=== PATIENT | female | born 1975 | race Caucasian/White ===

== ENCOUNTER → 2016-06-15 | Outpatient (CLI) | payer OTHER ==
[~2016-06-15] MED LIST: IBUP-1050 PO; MELA1TAB5 PO; PEDI-19 PO; PRENTAB26 PO
== END | disposition home or self-care (01) ==
LOC: C.PAPS 14:17
PROVIDERS: ATTEND Obstetrics & Gynecology
DX: Z01.419 Encounter for gynecological examination (general) (routine) without abnormal findings (principal); Z30.9 Encounter for contraceptive management, unspecified

== ENCOUNTER → 2016-08-03 | Day surgery (SDC) | payer OTHER ==
[2016-07-07 11:03] VITALS: Ht 167.6 cm; Wt 90.9 kg
[2016-07-23 13:48] LABS: BASO % 0.2 %; BASO ABS # 0.01 K/uL (0-0.2); COMPLETE YES; EOS % 0.9 %; IG% 0.2 %; LYMPH % 30.8 %; LYMPH ABS # 1.78 K/uL (1.2-3.4); MEAN CELL VOLUME 88.8 fL (80-100); MEAN CORPUSCULAR HEMOGLOBIN 29.2 pg (25-34); MEAN CORPUSCULAR HGB CONC 32.8 g/dl (32-36); MEAN PLATELET VOLUME 11.6 fL (7.4-10.4); MONO % 4.8 %; NEUT % 63.1 %; PLATELET COUNT 158 K/uL (130-400); RED BLOOD COUNT 4.39 M/uL (4.2-5.4); WHITE BLOOD COUNT 5.78 K/uL (4.8-10.8)
[~2016-08-03] VITALS: Ht 167.6 cm; Wt 90.9 kg
[~2016-08-03] MED LIST changes: +ATROPINE SULFATE 0.1 MG/ML 5ML SYR IV PRN; +DEXAMETHASONE SOD INJ 4 MG/ML VIAL ONE; +EpHEDrine SULFATE INJ 50 MG/ML AMP IV PRN; +FENTANYL CITRATE INJ 50 MCG/1 ML 2 ML VIAL IV PRN; +FENTANYL CITRATE INJ 50 MCG/1 ML 2 ML VIAL ONE; +GENERAL ORDER PROBLEM SCH; +GLYCOPYRROLATE INJ 0.2 MG/ML VIAL ONE; +HYDROmorphone INJ 1 MG/ML SYR IV PRN; +IBUPROFEN 600 MG TAB PO PRN; +KETOROLAC TROMETHAMINE 30 MG/ML VIAL IV. PRN; +KETOROLAC TROMETHAMINE 30 MG/ML VIAL IV. SCH; +KETOROLAC TROMETHAMINE 30 MG/ML VIAL ONE; +LACTATED RINGER'S 1000ML 1,000 ML IV SCH; +LIDOCAINE HCL 2% 2 ML VIAL (20MG/ML) ONE; +MIDAZOLAM HCL 1 MG/ML 2ML VIAL ONE; +MoRPHine SULFATE 2 MG/ML CARP IV PRN; +MoRPHine SULFATE 4 MG/ML 1 ML CARP\\VIAL IV PRN; +NEOSTIGMINE METHYLSULFATE 5 MG/5 ML SYR ONE; +ONDANSETRON INJ 2 MG/ML 2 ML VIAL IV PRN; +ONDANSETRON INJ 2 MG/ML 2 ML VIAL ONE; +OXYCODONE/ACETAMINOPHEN 5-325 TAB ONE; +OXYCODONE/ACETAMINOPHEN 5-325 TAB PO PRN; -PRENTAB26 PO; +PROPOFOL IV EMULSION 10 MG/ML 20 ML VIAL IV ONE; +SODIUM CHLORIDE 0.9% 1000ML 1,000 ML IV SCH
--- NOTE | 2016-08-03 08:11 | History & Physical Bridge - [place] ---
H&P Re-Evaluation Bridge Note: I have examined the patient, reviewed the History & Physical and in the interval since the performance of the History & Physical I have noted the following changes of clinical significance: No changes noted
--- NOTE | 2016-08-03 08:55 | [facility] Post Operative Brief Note ---
Immediate Operative Summary Operative Date Aug 03, 2016. Pre-Operative Diagnosis Desires Permanent Sterilization Post-Operative Diagnosis same Procedure(s) Performed Hysteroscopic Guided Tubal Sterilization With Bilateral Essure, Removal Intra Uterine Device Surgeon Dr. Sreedhar Sunshine Skein Washer Surgeon(s) 0 Estimated Blood Loss 0 Findings uterus sounded to 8cm, both tubal ostia visualized, no masses or lesions in the uterus. right coil placed first with 3 trailing coils, left with 5 trailing coils Fluids (cc crystalloids) 900cc ivf, 365 cc deficit. Specimens The removed IUD was inspected by Dr. Sunshine and found to be intact. It was not sent to Pathology Drains none Anesthesia gett Complication(s) None Disposition Recovery Room / PACU
--- NOTE | 2016-08-03 08:56 | Discharge Instructions ---
Discharge Instructions Date of Service Aug 03, 2016. Visit Reason for Visit: Contraceptive Management Discharge Discharge Diagnosis / Problem: s/p Mirena IUD removal, insertion of Essure coils bilaterally Discharge Goals Goal(s): Specific goals Activity Recommendations Activity Limitations: per Instructions/Follow-up section Anesthesia . Post Anesthesia Instructions: If you have had General Anesthesia or IV Sedation: * Do not drive today. * Resume driving when surgeon permits. * Do not make important decisions or sign legal documents today. * Call surgeon for: 1. Temperature elevations greater than 101 degrees F. 2. Uncontrollable pain. 3. Excessive bleeding. 4. Persistent nausea and vomiting. 5. Medication intolerance (nausea, vomiting or rash). * For nausea and vomiting use only clear liquids such as: tea, soda, bouillon until nausea subsides, then gradually increase diet as tolerated. * If you have any concerns or questions, call your surgeon's office. If physician is unavailable and it is an emergency, call 911 or go to the nearest emergency room. . Instructions / Follow-Up Instructions / Follow-Up ACTIVITY RECOMMENDATIONS: * Avoid tampons, douching, hot tubs, pools, and intercourse until bleeding has stopped. * May shower as usual. * No strenuous activity for 24-48 hours. After 24-48 hours, you may do anything you feel like doing (driving and sports are okay). SPECIAL CARE INSTRUCTIONS: Special Diet: * Mild nausea may occur in the immediate post-operative period. * Take clear liquids such as tea, cola or bouillon until all nausea has subsided; you may then resume your normal diet. Special Care: * Light bleeding and vaginal spotting can last from a few days to 3-4 weeks. Call your doctor if bleeding becomes heavier than the heaviest part of your period. * Check your temperature twice a day for one week. If it goes above 100.4 degrees Fahrenheit (38.0 Celsius), notify your doctor. * Call your doctor's office for an appointment for 6 weeks after your surgery. FOLLOW-UP VISIT: Call your doctor's office for an appointment for 6 weeks after your surgery. YOU MUST HAVE PROTECTED INTERCOURSE FOR 3 MONTHS UNTIL ESSURE PLACEMENT CONFIRMED. Diet Recommendations Recommended Home Diet: no limitations, resume previous diet Procedures Procedures Performed: Hysteroscopic Guided Tubal Sterilization With Bilateral Essure, Removal Intra Uterine Device Pending Studies Studies pending at discharge: no Medical Emergencies . Who to Call and When: Medical Emergencies: If at any time you feel your situation is an emergency, please call 911 immediately. . Non-Emergent Contact Non-Emergency issues call your: Bilingual Kindergarten Teacher . . "Provider Documentation" section prepared by Lyly Sunshine. .
[2016-08-03 09:27] VITALS: TEMP 36.4
--- NOTE | 2016-08-03 09:47 | OPERATIVE REPORT ---
DATE OF OPERATION: 08/03/2016 PREOPERATIVE DIAGNOSES: 1. Mirena intrauterine device in situ. 2. Desires permanent surgical sterilization. POSTOPERATIVE DIAGNOSES: Same. PROCEDURES: 1. Removal of Mirena intrauterine device, intact. 2. Bilateral Essure coil device placement. ANESTHESIA: General per endotracheal tube. ESTIMATED BLOOD LOSS: None. FLUIDS: 900 mL of IV fluids and 365 mL hysteroscopic deficit. INDICATIONS: Courtney is a 41-year-old, 3, para 3 with a Mirena IUD in situ who desires permanent surgical sterilization. FINDINGS: Uterus sounded to 8 cm. Both tubal ostia were visualized, coils were placed easily; the first on the right with 3 trailing coils and then on the left with 5 trailing coils. The uterus contained no masses or abnormalities. COMPLICATIONS: None. DRAINS: None. DISPOSITION: To recovery room in stable condition. DETAILS OF THE PROCEDURE: The patient was taken to the operating room where she was identified verbally and by bracelet. She was placed in dorsal supine position where general anesthesia was induced without difficulty. She was then placed in dorsal lithotomy position in [facility] stirrups and prepped and draped in normal sterile fashion. Timeout was held identifying correct patient, procedure and positioning. An exam under anesthesia was performed with a slightly anteverted mobile, nontender, normal sized uterus, no appreciable adnexal masses. The bladder was drained of urine. A weighted speculum was placed in the posterior vagina. The anterior lip of the cervix was grasped with a single tooth tenaculum. The IUD strings were visualized. They were grasped with an Allis clamp and the Mirena IUD was removed intact. The uterus was then sounded to 8 cm, dilated to #23 Hegar dilator. The hysteroscope was introduced, both tubal ostia were noted and was felt to be able to place the Essure coils easily. The Essure coils were placed first on the right; the Essure device threaded easily into the tubal ostia and was deployed with 3 trailing coils. Then, on the left, the Essure device was placed into the tubal ostia with ease and it was deployed with 5 trailing coils. The procedure was thus terminated. All instruments were removed from the vagina and hemostasis was noted to be excellent. All sponge, lap and needle counts were correct x2. The patient tolerated the procedure well and was taken to the recovery room in stable condition. I attest to the content of the Intraoperative Record and any orders documented therein. Any exceptio ns are noted below.
--- NOTE | 2016-08-03 09:51 | Anesthesia Progress Nt - [facility] ---
Anesthesia Post Op Note Date & Time Aug 03, 2016 at 09:51 Vital Signs Pain Intensity: 3.0 Vital Signs Past 12 Hours Date Time Temp Pulse Resp B/P Pulse Ox O2 Delivery O2 Flow Rate FiO2 08/03/16 09:23 59 12 100 08/03/16 09:23 59 12 08/03/16 09:20 116/78 08/03/16 09:19 36.7 99 Room Air 08/03/16 09:18 63 15 99 08/03/16 09:18 63 15 08/03/16 09:17 64 15 100 08/03/16 09:17 65 15 08/03/16 09:15 106/68 08/03/16 09:12 68 12 08/03/16 09:12 69 12 100 08/03/16 09:11 71 14 08/03/16 09:11 69 14 100 08/03/16 09:10 110/76 08/03/16 09:06 64 13 100 08/03/16 09:06 63 13 08/03/16 09:05 70 13 08/03/16 09:05 70 13 110/78 100 08/03/16 09:02 113/84 08/03/16 09:00 79 13 100 08/03/16 09:00 77 13 08/03/16 08:59 79 17 08/03/16 08:59 80 17 100 08/03/16 08:56 119/85 08/03/16 08:54 36.7 86 14 121/79 100 Mask 8 08/03/16 08:54 88 11 121/79 100 08/03/16 08:54 88 11 08/03/16 06:53 36.6 78 16 108/76 100 Room Air Notes Mental Status: alert / awake / arousable, participated in evaluation Pt Amnestic to Procedure: Yes Nausea / Vomiting: adequately controlled Pain: adequately controlled Airway Patency, RR, SpO2: stable & adequate BP & HR: stable & adequate Hydration State: stable & adequate Anesthetic Complications: no major complications apparent
[2016-08-03 10:19] VITALS: BP 112/76; PULSE 72; O2SAT 100
== END | disposition home or self-care (01) ==
LOC: X.SURG 06:45
PROVIDERS: ATTEND Obstetrics & Gynecology
DX: Z30.2 Encounter for sterilization (principal); Z30.432 Encounter for removal of intrauterine contraceptive device

== ENCOUNTER → 2016-10-29 | Outpatient (CLI) | payer OTHER ==
[~2016-10-29] MED LIST changes: -ATROPINE SULFATE 0.1 MG/ML 5ML SYR IV PRN; -DEXAMETHASONE SOD INJ 4 MG/ML VIAL ONE; -EpHEDrine SULFATE INJ 50 MG/ML AMP IV PRN; -FENTANYL CITRATE INJ 50 MCG/1 ML 2 ML VIAL IV PRN; -FENTANYL CITRATE INJ 50 MCG/1 ML 2 ML VIAL ONE; -GENERAL ORDER PROBLEM SCH; -GLYCOPYRROLATE INJ 0.2 MG/ML VIAL ONE; -HYDROmorphone INJ 1 MG/ML SYR IV PRN; -IBUPROFEN 600 MG TAB PO PRN; -KETOROLAC TROMETHAMINE 30 MG/ML VIAL IV. PRN; -KETOROLAC TROMETHAMINE 30 MG/ML VIAL IV. SCH; -KETOROLAC TROMETHAMINE 30 MG/ML VIAL ONE; -LACTATED RINGER'S 1000ML 1,000 ML IV SCH; -LIDOCAINE HCL 2% 2 ML VIAL (20MG/ML) ONE; -MIDAZOLAM HCL 1 MG/ML 2ML VIAL ONE; -MoRPHine SULFATE 2 MG/ML CARP IV PRN; -MoRPHine SULFATE 4 MG/ML 1 ML CARP\\VIAL IV PRN; -NEOSTIGMINE METHYLSULFATE 5 MG/5 ML SYR ONE; -ONDANSETRON INJ 2 MG/ML 2 ML VIAL IV PRN; -ONDANSETRON INJ 2 MG/ML 2 ML VIAL ONE; -OXYCODONE/ACETAMINOPHEN 5-325 TAB ONE; -OXYCODONE/ACETAMINOPHEN 5-325 TAB PO PRN; -PROPOFOL IV EMULSION 10 MG/ML 20 ML VIAL IV ONE; -SODIUM CHLORIDE 0.9% 1000ML 1,000 ML IV SCH
--- NOTE | 2016-10-29 10:40 | [facility] Operative Report ---
Operative Report Operative Date Oct 29, 2016. Pre-Operative Diagnosis S/P PLACEMENT OF ESSURE DEVICES Post-Operative Diagnosis SAME Procedure(s) Performed [facility] Surgeon NAKUL Plug Stitcher Surgeon(s) NONE Estimated Blood Loss NONE Findings NL FILLING UTERINE CAVITY. BOTH ESSURE DEVICES VISUALIZED IN CORRECT POSITIONS. NO FILLING OF THE TUBES. Fluids N/A Specimens NONE Drains NONE Anesthesia NONE Complication(s) None Disposition HOME Description of Procedure TIME OUT WAS HELD IDENTIFYING CORRECT PATIENT AND PROCEDURE. PATIENT WAS LAID SUPINE AND FROG-LEGGED. SPECULUM PLACED. CX CLEANED WITH IODINE AND GRASPED WITH ALLIS. RADIOLOGIST CALLED AND DYE WAS INTRODUCED INTO THE UTERINE CAVITY. THE FINDINGS ARE NOTED ABOVE. WHEN THE PROCEDURE WAS COMPLETED, THE INSTRUMENTS WERE REMOVED FROM THE VAGINA. HEMOSTASIS WAS NOTED. THE PATIENT WAS D/C IN STABLE CONDITION. I attest to the content of the Intraoperative Record and any orders documented therein. Any exceptions are noted below.
--- NOTE | 2016-10-29 12:12 | DIAGNOSTIC IMAGING REPORT ---
HYSTEROSALPINGOGRAM CLINICAL HISTORY: 41-year-old female with sterilization procedure. TECHNIQUE: The cervix was cannulated by the grocery sacker-occupational therapy technician and water soluble contrast was instilled into the uterus under fluoroscopic guidance. Multiple spot images were obtained. FINDINGS: The uterine cavity is normal in size, shape, and position. A bubble of gas noted within the endometrial canal. Bilateral occlusion devices noted in the fallopian tubes. No opacification of the fallopian tubes with contrast. No peritoneal spillage. This is consistent with expected obstruction of the fallopian tubes. Fluoroscopy dosage (mGy): Not available. Fluoroscopy time: 0.6 minutes. Number of fluoroscopic spot images: 1. IMPRESSION: No evidence of fallopian tube filling or peritoneal spillage status post sterilization procedure consistent with fallopian tube occlusion. Electronically signed by: Benedict Huston M.D. 10/29/2016 12:11 PM Dictated Date/Time: 10/29/2016 12:09 PM
== END | disposition home or self-care (01) ==
LOC: C.RAD 09:16
PROVIDERS: ATTEND Obstetrics & Gynecology
DX: Z30.2 Encounter for sterilization (principal); Z30.9 Encounter for contraceptive management, unspecified